=== PATIENT | female | born 2005 | race African-American/Black ===

== ENCOUNTER 2025-09-01 16:13 | Emergency (ER) | payer OTHER, SELFPAY ==
--- NOTE | 2025-09-01 16:28 | ED.URI ---
HPI - URI/Sore Throat <Stefanie Gavin PA-C - Last Filed: 09/01/25 18:27> General Chief Complaint: Upper Respiratory Symptoms Stated Complaint: Covid pos home test, wants official test Time Seen by Provider: 09/01/25 16:27 History of Present Illness HPI Narrative: Ms. Doe is a pleasant 19-year-old female, active [employer], with no reported past medical history who presents to the emergency department for concern of sore throat, fevers, body aches x2 days. Patient states that she recently flew from [place] to [place] last week. She started feeling sick about 2 days ago with fevers, chills, sore throat, body aches. She wanted to try to get a COVID, flu and strep throat test however had difficulty findings open clinics. She ended up taking a home COVID test that was positive. She wants the hospital COVID test however. She denies chest pain, shortness of breath, abdominal pain, vomiting, diarrhea, dysuria, flank pain. She took Tylenol this morning. Related Data Allergies Allergy/AdvReac Type Severity Reaction Status Date / Time No Known Drug Allergies Allergy Verified 09/01/25 16:34 Review of Systems <Stefanie Gavin PA-C - Last Filed: 09/01/25 18:27> Review of Systems ROS Unobtainable: All systems reviewed & are unremarkable except as noted in HPI and below Exam <Stefanie Gavin PA-C - Last Filed: 09/01/25 18:27> Narrative Exam Narrative: GENERAL: 19 year old patient appears stated age. Well-developed patient, in no acute distress. HEAD: Atraumatic. Normocephalic. EYES: PERRL. Extraocular motions intact. No scleral icterus. No injection or drainage. ENT: Nose without bleeding, purulent drainage. Throat with posterior oropharyngeal erythema and mild bilateral tonsillar hypertrophy, no exudates. Uvula is midline. Airway patent. NECK: Trachea midline. Cervical ROM intact. Mild bilateral palpable cervical lymphadenopathy. CARDIOVASCULAR: Increased rate and regular rhythm. RESPIRATORY: ?Nonlabored respirations. ?Speaking in clear, full sentences. ?Clear to auscultation. Breath sounds equal bilaterally. No wheezes, rales, or rhonchi. ? BACK: Nontender without deformity or crepitance. No flank tenderness. NEURO: AOx3. ?Clear speech. ?Moves all 4 extremities appropriately. SKIN: No rash or erythema of visible areas Initial Vital Signs Initial Vital Signs: Vital Signs Temperature 100.6 F H 09/01/25 16:32 Pulse Rate 102 H 09/01/25 16:32 Respiratory Rate 16 09/01/25 16:32 Blood Pressure 138/69 09/01/25 16:32 Pulse Oximetry 96 09/01/25 16:32 Oxygen Delivery Method Room Air 09/01/25 16:32 <Ernesto Dugan MD - Last Filed: 09/01/25 19:46> Initial Vital Signs Initial Vital Signs: Vital Signs Temperature 100.6 F H 09/01/25 16:32 Pulse Rate 102 H 09/01/25 16:32 Respiratory Rate 16 09/01/25 16:32 Blood Pressure 138/69 09/01/25 16:32 Pulse Oximetry 96 09/01/25 16:32 Oxygen Delivery Method Room Air 09/01/25 16:32 Course <Stefanie Gavin PA-C - Last Filed: 09/01/25 18:27> Orders Ordered: ED Orders 09/01/25 16:35 Covid-19 + FLU A/B + RSV - PCR Stat Strep Grp A by PCR Rapid Stat Discontinued Medications Acetaminophen (Acetaminophen 325 Mg Tablet) 975 mg PO NOW ONE Stop: 09/01/25 16:35 Last Admin: 09/01/25 16:40 Dose: 975 mg Documented By: JENISE Ibuprofen (Ibuprofen 400 Mg Tablet) 800 mg PO NOW ONE Stop: 09/01/25 16:35 Last Admin: 09/01/25 16:40 Dose: 800 mg Documented By: CTS Vital Signs Vital signs: Vital Signs - 8 hr 09/01/25 16:32 09/01/25 17:57 09/01/25 17:58 Temperature 100.6 F H 99.1 F 99.1 F Pulse Rate 102 H 72 Respiratory Rate 16 18 Blood Pressure 138/69 116/63 Pulse Oximetry 96 98 Oxygen Delivery Method Room Air Room Air 09/01/25 17:59 Temperature 99.1 F Pulse Rate Respiratory Rate Blood Pressure Pulse Oximetry Oxygen Delivery Method <Ernesto Dugan MD - Last Filed: 09/01/25 19:46> Orders Ordered: ED Orders 09/01/25 16:35 Covid-19 + FLU A/B + RSV - PCR Stat Strep Grp A by PCR Rapid Stat Discontinued Medications Acetaminophen (Acetaminophen 325 Mg Tablet) 975 mg PO NOW ONE Stop: 09/01/25 16:35 Last Admin: 09/01/25 16:40 Dose: 975 mg Documented By: CTS Ibuprofen (Ibuprofen 400 Mg Tablet) 800 mg PO NOW ONE Stop: 09/01/25 16:35 Last Admin: 09/01/25 16:40 Dose: 800 mg Documented By: CTS Vital Signs Vital signs: Vital Signs - 8 hr 09/01/25 16:32 09/01/25 17:57 09/01/25 17:58 Temperature 100.6 F H 99.1 F 99.1 F Pulse Rate 102 H 72 Respiratory Rate 16 18 Blood Pressure 138/69 116/63 Pulse Oximetry 96 98 Oxygen Delivery Method Room Air Room Air 09/01/25 17:59 Temperature 99.1 F Pulse Rate Respiratory Rate Blood Pressure Pulse Oximetry Oxygen Delivery Method MDM - URI/Sore Throat <Stefanie Gavin PA-C - Last Filed: 09/01/25 18:27> Medical Records Medical records narrative: None available Lab Data Labs: Lab Results 09/01/25 Range/Units 16:35 SARS-CoV-2 (PCR) Positive H (Negative) Influenza A (RT-PCR) Flu a negative (NEGATIVE) Influenza B (RT-PCR) Flu b negative (NEGATIVE) RSV (PCR) Negative (Negative) Group A Strep (PCR) Negative (Negative) MDM Narrative Medical decision making narrative: 19-year-old female, active [employer], with no reported past medical history who presents to the emergency department for concern of sore throat, fevers, body aches x2 days. Differential diagnosis includes but isn't limited to COVID, flu, RSV, viral pharyngitis, strep pharyngitis, etc. On exam the patient is in no acute distress, nontoxic appearing, she does have a mild fever and heart rate slightly elevated 102. She has been having upper respiratory symptoms for 2 days and had a positive home COVID test. Discussed with the patient that we can assume that she does have COVID however she does want to be tested for flu RSV as well and therefore would like the hospital COVID test. She does have posterior oropharyngeal erythema and tenderness cervical lymphadenopathy, we will obtain strep swab as well. We will treat with ibuprofen and Tylenol. Rapid strep swab negative, throat culture sent. Positive for COVID. No medical comorbidities signifying need for Paxlovid. Discussed supportive care involving hydration, rest, electrolytes, warm tea with honey, ibuprofen and Tylenol together or alternating, PCP follow up and strict ER return precautions. Patient verbalized understanding of all information is agreeable with the plan. Her vital signs improved. She is stable for discharge home. All questions answered. <Ernesto Dugan MD - Last Filed: 09/01/25 19:46> Lab Data Labs: Lab Results 09/01/25 Range/Units 16:35 SARS-CoV-2 (PCR) Positive H (Negative) Influenza A (RT-PCR) Flu a negative (NEGATIVE) Influenza B (RT-PCR) Flu b negative (NEGATIVE) RSV (PCR) Negative (Negative) Group A Strep (PCR) Negative (Negative) MDM Narrative Medical decision making narrative: 19-year-old female, active [employer], with no reported past medical history who presents to the emergency department for concern of sore throat, fevers, body aches x2 days. Differential diagnosis includes but isn't limited to COVID, flu, RSV, viral pharyngitis, strep pharyngitis, etc. On exam the patient is in no acute distress, nontoxic appearing, she does have a mild fever and heart rate slightly elevated 102. She has been having upper respiratory symptoms for 2 days and had a positive home COVID test. Discussed with the patient that we can assume that she does have COVID however she does want to be tested for flu RSV as well and therefore would like the hospital COVID test. She does have posterior oropharyngeal erythema and tenderness cervical lymphadenopathy, we will obtain strep swab as well. We will treat with ibuprofen and Tylenol. Rapid strep swab negative, throat culture sent. Positive for COVID. No medical comorbidities signifying need for Paxlovid. Discussed supportive care involving hydration, rest, electrolytes, warm tea with honey, ibuprofen and Tylenol together or alternating, PCP follow up and strict ER return precautions. Patient verbalized understanding of all information is agreeable with the plan. Her vital signs improved. She is stable for discharge home. All questions answered. I was present and available for consultation during this patient's visit but was not involved in the patient's care. Discharge Plan Departure Patient Disposition: Home Clinical Impression: COVID-19, Acute viral pharyngitis Instructions: DI for COVID-19 (Suspected or Confirmed ) Activity Restrictions/Additional Instructions: Dear Ms. Doe, Thank you for coming to the emergency department. Today you were evaluated for fevers, chills, body aches, sore throat. You tested positive for COVID-19. You tested negative for influenza a, influenza B, RSV, strep throat. Please stay home for the next week. Please rest, hydrate, use ibuprofen 400 mg and acetaminophen 650 mg alternating every 3 hours for aches and pains. You can take a 1000 mg of acetaminophen and 600 mg of ibuprofen as well, you can take these together, however but then police space it out 8 hours. Please drink warm tea with honey to help soothe your sore throat. Please return to the ER immediately if you develop any new or worsening symptoms, difficulty breathing, chest pain, symptoms worsening after a week or any other concerns. Please follow up with your primary care doctor within the next 2-3 days for ER follow-up. (If you do not have a PCP you can call [phone]. ?to schedule an appointment with an [facility] Primary Care Provider) IF YOU DEVELOP ANY NEW OR WORSENING SYMPTOMS, RETURN TO THE ER! Please read the attached instructions, they highlight more specific treatments and interventions for you at home. Thank you for letting me participate in your care, Stefanie Gavin PA-C Stand Alone Forms: Patient Portal/API, Work Release Note
[2025-09-01 16:32] VITALS: BP 138/69; PULSE 102; RESP 16; TEMP 38.1; O2SAT 96; BMI 28.4
[2025-09-01] MEDS: ACETAMINOPHEN 325 MG TABLET 975 MG PO (16:40)
[2025-09-01] MEDS: IBUPROFEN 400 MG TABLET 800 MG PO (16:40)
[2025-09-01 17:05] LABS: Strep Grp A by PCR Rapid Negative (Negative)
[2025-09-01 17:26] LABS: Influenza A - CEPHEID Flu A NEGATIVE (NEGATIVE); Influenza B - CEPHEID Flu B NEGATIVE (NEGATIVE)
[2025-09-01 17:31] LABS: COVID-19 CEPHEID 4-PLEX PCR POSITIVE (Negative)
[2025-09-01 17:57] VITALS: BP 116/63; PULSE 72; RESP 18; TEMP 37.3; O2SAT 98
[2025-09-01 17:58] VITALS: TEMP 37.3
[2025-09-01 17:59] VITALS: TEMP 37.3
== END 2025-09-01 18:03 | disposition home or self-care (01) ==
PROVIDERS: Emergency Provider Physician Assistant
DX: U07.1 COVID-19 (principal); J02.8 Acute pharyngitis due to other specified organisms; B97.89 Other viral agents as the cause of diseases classified elsewhere; R50.9 Fever, unspecified; M79.10 Myalgia, unspecified site
CPT/HCPCS: 87637; 87651; 99283